=== PATIENT | female | born 1950 | race American Indian/Alaskan Native ===

== ENCOUNTER 2017-03-17 08:47 | Day surgery (SDC) | payer MEDICARE ==
[2017-03-17] MEDS ORDERED: XYLOCAINE MPF 2% ONE (09:24)
[2017-03-17] MEDS ORDERED: DILAUDID ONE (09:24)
[2017-03-17] MEDS ORDERED: DIPRIVAN 10 MG/ML IV ONE (09:24)
--- NOTE | 2017-03-17 09:45 | Anesthesia Day of Surgery ---
Anesthesia Day of Surgery - Day of Surgery Patient Examined: Yes Patient H&P Reviewed: Yes Patient is NPO: Yes
--- NOTE | 2017-03-17 09:45 | Anesthesia Consultation ---
Anesthesia Consult and Med Hx Date of service: 03/17/17 - Airway Anesthetic Teeth Evaluation: Poor ROM Head & Neck: Adequate Mental/Hyoid Distance: Adequate Mallampati Class: Class II Intubation Access Assessment: Probably Good - Pulmonary Exam CTA: Yes - Cardiac Exam Cardiac Exam: RRR - Pre-Operative Health Status ASA Pre-Surgery Classification: ASA3 Proposed Anesthetic Plan: General - Pulmonary Hx Smoking: Yes Hx Asthma: Yes ("nocturnal" asthma, last used inhaler 3 mos ago) - Cardiovascular System Hx Hypertension: Yes (x 18 mos) - Central Nervous System Hx Psychiatric Problems: Yes - Other Systems Hx Alcohol Use: Yes (occas) Hx Cancer: No
[2017-03-17] MEDS ORDERED: TRANSDERM-SCOP TD NR (10:00)
[2017-03-17] MEDS ORDERED: VERSED IV NR (10:00)
[2017-03-17] MEDS ORDERED: PEPCID PO NR (10:00)
[2017-03-17] MEDS ORDERED: LACTATED RINGERS 1,000 ML IV SCH (10:00)
[2017-03-17] MEDS ORDERED: LUGOL'S SOLUTION 5% TP ONE (10:15)
[2017-03-17] MEDS ORDERED: ACETIC ACID 3% SOLN TP ONE (10:15)
[2017-03-17] MEDS ORDERED: SILVER NITRATE TP ONE (10:16)
[2017-03-17] MEDS ORDERED: MONSEL'S TP ONE ×2 (10:16→11:17)
--- NOTE | 2017-03-17 10:20 | Short Stay Summary ---
Short Stay Documentation Date of service: 03/17/17 Narrative H&P: C/O: HGSIL on recent Pap 67-year-old who has HGSIL on Pap dated 02/09/2017. Gynhx: Menopausal since 54 years old, history of abnormal Paps 25 years ago otherwise or history of abnormal Paps Medhx: HTN, dyslipidemia, depression Sughx: 37 years ago, cervical disc replacement, breast reduction Meds:Metoprolol, Effexor, Simvastatin ALL:NKDA Fshx: Single smoker, retired and disabled On exam, atrophic vaginal mucosa and very small cervix -Patient with HGSIL on Pap, she has already done some research and above. We discussed options for care discuss colposcopy or proceeding with LEEP. We reviewed pros and cons of each option. Patient decided to proceed with LEEP -Reviewed the risks associated with LEEP including injury to surrounding structures and vessels infection and pain, all questions were answered and she signed consent -Proceed to the OR for LEEP once available - History Past Medical History: hypertension, other (see HPI notes above) Past Surgical History: Social history: single, smoking, full code, no alcohol abuse, no prescription drug abuse, no IV drug use - Allergies and Medications Current Medications: Allergies No Known Allergies Allergy (Verified 03/17/17 10:09) Home Medications Medication Instructions Recorded Confirmed Last Taken Type ALBUTEROL Inhaler [Proair] 2 puff IH QID PRN 03/16/17 03/16/17 Unknown History ALPRAZolam [Xanax TAB] 0.25 mg PO BID 03/16/17 03/16/17 Unknown History Ezetimibe [Zetia] 10 mg PO DAILY 03/16/17 03/16/17 Unknown History Metoprolol [Lopressor] 25 mg PO DAILY 03/16/17 03/16/17 Unknown History Pantoprazole [Protonix] 40 mg PO QDAY 03/16/17 03/16/17 Unknown History Simvastatin [Simvastatin] 20 mg PO DAILY 03/16/17 03/16/17 Unknown History Venlafaxine HCl [Venlafaxine ER] 150 mg PO QDAY 03/16/17 03/16/17 Unknown History traZODone [Desyrel] 100 mg PO QHS 03/16/17 03/16/17 Unknown History Active Medications Famotidine (Pepcid) 20 mg PO PREOP NR Stop: 03/17/17 18:00 Lactated Ringer's (Lactated Ringers) 1,000 mls @ 100 mls/hr IV DIRECT MANDI Midazolam HCl (Versed) 2 mg IV PREOP NR Stop: 03/17/17 23:59 Morphine Sulfate (Morphine) 2 mg IV Q10MIN PRN PRN Reason: Pain, Moderate (4-6) Stop: 03/17/17 15:00 Oxycodone/Acetaminophen (Percocet 5/325) 1 tab PO ONCE PRN PRN Reason: Pain, Moderate (4-6) Scopolamine (Transderm-Scop) 1 each TD PREOP NR Stop: 03/17/17 16:00 - Physical exam General appearance: no acute distress, well-nourished Lungs: Clear to auscultation, Normal air movement Breasts: deferred Heart: Regular rate, Normal S1, Normal S2 Gastrointestinal: normal, normoactive bowel sounds, no tenderness, no distended , no masses, no guarding, no costovertebral Female Genitourinary: normal (atrophic otherwise normal, see history) Extremities: no ischemia Neurological: Normal speech - Brief post op/procedure progress note Date of procedure: 03/17/17 Pre-op diagnosis: HGSIL Post-op diagnosis: same Procedure: LEEP Anesthesia: GETA Findings: Atrophic vagina, small cervix Surgeon: PATTIE RAMOS Estimated blood loss: minimal Pathology: list (LEEP biopsy specimen tagged at 12) Specimen disposition: to lab Condition: stable - Hospital course Hospital course: Uncomplicated PACU course - Disposition Condition at discharge: Good Disposition: DC- TO HOME OR SELFCARE - Discharge Diagnoses (1) S/P LEEP (loop electrosurgical excision procedure) Status: Acute (2) HGSIL (high grade squamous intraepithelial dysplasia) Status: Acute Short Stay Discharge Plan Activity: other (Pelvic rest 2 weeks) Weight Bearing Status: Weight Bear as Tolerated Diet: regular Wound: open to air Follow up with: PATTIE RAMOS MD [Staff Physician] - 14 Days Prescriptions: Ibuprofen [Motrin 600 MG tab] 600 mg PO Q8H PRN #30 tablet PRN Reason: Pain
[2017-03-17] MEDS ORDERED: MORPHINE IV PRN (10:30)
[2017-03-17] MEDS ORDERED: PERCOCET 5/325 PO PRN (10:30)
[2017-03-17] MEDS ORDERED: ePHEDrine SULFATE ONE (10:49)
[2017-03-17] MEDS ORDERED: DECADRON ONE (10:53)
[2017-03-17] MEDS ORDERED: ZOFRAN ONE (10:53)
[2017-03-17] MEDS ORDERED: NACL 0.9% IR ONE (11:18)
--- NOTE | 2017-03-17 11:18 | Operative Report ---
Operative Report Operative Report: DATE: 03/17/2017 PREOPERATIVE DIAGNOSIS: HGSIL POSTOP DIAGNOSIS: Same NAME OF PROCEDURE: LEEP SURGEON: PATTIE RAMOS MD PERSONAL VEHICLE ADVISOR: None ANESTHESIA: General endotracheal EBL: Minimal PATHOLOGY SPECIMEN: LEEP specimen tagged at 12:00 URINE OUTPUT: 10 mL prior to procedure FINDINGS: Atrophic vaginitis, small cervix DESCRIPTION OF PROCEDURE: After informed consent, patient was taken to the operating room where she was prepped and draped in a sterile fashion. Coated speculum was placed in the patient's vagina single-tooth was used to grab the anterior lip. The LEEP cautery device was then advanced into the cervix and sample collected. She tolerated the procedure well, lap and instrument counts were correct 2. She is transferred to PACU in stable condition
[2017-03-17] MEDS ORDERED: TYLENOL PO PRN (11:21)
[2017-03-17] MEDS ORDERED: NORCO 5/325 PO PRN (11:21)
[2017-03-17] MEDS ORDERED: MOTRIN PO PRN (11:21)
[2017-03-17 12:22] VITALS: BP 109/62
--- NOTE | 2017-03-17 12:44 | Post Anesthesia Evaluation ---
- Post Anesthesia Evaluation Patient Participated: Yes Airway Patent: Yes Stable Respiratory Function: Yes Nausea/Vomiting: No Temp > 96.8F: Yes Pain Manageable: Yes Adequeate Hydration: Yes Anesthesia Complications: No Block Receding Appropriately: Not Applicable Patient on Ventilator: No
== END 2017-03-17 13:12 | disposition home or self-care (01) ==
LOC: OR 08:47
PROVIDERS: ATTEND Obstetrics & Gynecology Gynecology
DX: N87.0 Mild cervical dysplasia (principal); N95.2 Postmenopausal atrophic vaginitis; I10 Essential (primary) hypertension; J45.909 Unspecified asthma, uncomplicated; E78.5 Hyperlipidemia, unspecified; F32.9 Major depressive disorder, single episode, unspecified; F17.200 Nicotine dependence, unspecified, uncomplicated; Z98.890 Other specified postprocedural states; Z98.1 Arthrodesis status; Z79.899 Other long term (current) drug therapy
CPT/HCPCS: 57522; 88307; J1100; J1170; J2250; J2270; J2405; J2704; J7120; 88305